=== PATIENT | male | born 1975 | race American Indian/Alaskan Native ===

== ENCOUNTER 2017-02-07 17:59 | Emergency (ER) | payer OTHER ==
[2017-02-07] MEDS ORDERED: NACL 0.9% 1000 ML 1,000 ML IV ONE (19:04)
[2017-02-07 19:27] LABS: Basophils % (Auto) 0.3 % (0.0-1.8); Eosinophils % (Auto) 2.2 % (0.0-4.3); Hemoglobin 14.5 gm/dl (11.8-15.2); Mean Corpuscular HGB Conc 34 % (32-34); Mean Corpuscular Hemoglobin 32 pg (28-32); Mean Corpuscular Volume 96 fl (84-94); Platelet Count 198 K/mm3 (140-440); Red Blood Count 4.51 M/mm3 (3.65-5.03); Red Cell Distribution Width 13.8 % (13.2-15.2); White Blood Count 4.6 K/mm3 (4.5-11.0)
[2017-02-07] MEDS ORDERED: NACL ONE (19:30)
[2017-02-07 19:47] LABS: Alanine Aminotransferase 14 units/L (7-56); Albumin 4.4 g/dL (3.9-5); Albumin/Globulin Ratio 1.6 %; Alkaline Phosphatase 51 units/L (35-129); Anion Gap 18 mmol/L; BUN/Creatinine Ratio 17.69; Blood Urea Nitrogen 23 mg/dL (9-20); Calcium 9.4 mg/dL (8.4-10.2); Carbon Dioxide 27 mmol/L (22-30); Chloride 103.9 mmol/L (98-107); Glucose 90 mg/dL (75-100); Potassium 3.8 mmol/L (3.6-5.0); Sodium 145 mmol/L (137-145); Total Protein 7.1 g/dL (6.3-8.2)
[2017-02-07] MEDS ORDERED: ROCEPHIN IM ONE (20:14)
[2017-02-07] MEDS ORDERED: XYLOCAINE 1% MPF 5 mL INFILTRATI ONE (20:14)
[2017-02-07] MEDS ORDERED: ZITHROMAX PO ONE (20:14)
[2017-02-07 20:17] LABS: Bacteria,Urine 2+ /HPF (Negative); Bilirubin,Urine NEG (Negative); Blood,Urine MOD (Negative); Ketones,Urine NEG (Negative); Leukocyte Esterase,Urine NEG (Negative); Mucus,Urine 1+ /HPF; Nitrite,Urine NEG (Negative); Urobilinogen,Urine < 2.0 mg/dL (<2.0)
[2017-02-07 20:22] LABS: RBC,Urine > 182.0 /HPF (0.0-6.0)
--- NOTE | 2017-02-07 20:50 | Cat Scan Report ---
FINAL REPORT EXAM: CT ABDOMEN PELVIS W CON HISTORY: r/o kidney stone TECHNIQUE: Dynamic helical CT scan through the abdomen and pelvis during and again after intravenous injection of iodinated contrast. Images are reconstructed in the sagittal and coronal planes. Oral contrast was not given. PRIORS: None. FINDINGS: The lung bases are clear. The liver, gallbladder, pancreas, spleen and left adrenal gland appear normal. There is a 1.5 cm adenoma of the lateral limb of the right adrenal gland and 9 millimeter adenoma the medial limb . There is a 1.2 cm cyst in the lower pole of the right kidney. The pelvic organs appear grossly normal. The stomach appears grossly within normal limits. There are no abnormally dilated loops of bowel or acute inflammatory changes. A normal-appearing appendix is identified. The abdominal aorta has a normal diameter. The bones and subcutaneous soft tissues are unremarkable for age. IMPRESSION: 1. No evidence of hydronephrosis or urolithiasis. 2. Small right adrenal adenomas 3. 1.2 cm cyst in the lower pole of the right kidney. 4. No acute findings in the abdomen/pelvis
[2017-02-07 21:00] VITALS: BP 129/82
--- NOTE | 2017-02-07 22:47 | Emergency Department Report ---
Entered by MEDINA HUNG, acting as scribe for JEREMÍAS RASMUSSEN NP. ED Male HPI - General Chief complaint: Urogenital-Male Stated complaint: BLOOD IN URINE Source: patient Mode of arrival: Ambulatory Limitations: No Limitations - History of Present Illness Initial comments: 42 y/o male that is non-toxic, non ill appearing, in no acute distress with no significant PMHx presents to the ED c/o hematuria and blood in semen that began this afternoon. Patient states he had 1 beer last night and had sexual intercourse without protection [employer] the onset of symptoms. Associated symptom include urinary retention and dysuira, but he denies penile lesions, fever, chills, nausea, vomiting, chest pain, and SOB. Notes that he gets similar symptoms annually since 2011 but has not follow-up with his primary care doctor/ urologist due to no insurance till now. Patient states that the symptoms intermittently began in 2011 after sexual intercourse. He states he urinated afterwards and noticed blood present. Patient reports hematuria a couple of months later in 2011, but notes it occurred after consuming moderates amounts of EtOH. Patient stated has been going to the ER several times for this occasion with normal CT scans and prostate exams. He received Ct scans and ultrasound and was not diagnosed with having kidney stones or any other medical conditions. Notes he got his prostate checked 2 years ago with normal results, but he was diagnosed him with dehydration. Denies constipation, rectal bleeding , or pain. Patient denies abdominal pain and stated has normal voiding. Notes the symptoms mostly occur after consuming EtOH, but states the symptoms also occurred without EtOH consumption. NKDA. FLORES Complaint: other (urinary retention, hematuria, and blood in semen) -: Gradual, year(s) (5), This afternoon Location: penis Radiation: none Severity: moderate Consistency: constant Improves with: none Worsens with: none denies other symptoms, urinary retention, blood in urine, dysuria, other ( abdominal pain, hematuria, and blood in semen). denies: discharge, swelling, mass, rash, fever, nausea/vomiting, incontinence - Related Data Sexually active: Yes Previous Rx's Medication Instructions Recorded Last Taken Type Sulfamethoxazole/Trimethoprim 1 each PO BID 7 Days 02/07/17 Unknown Rx [Bactrim DS TAB] Allergies Allergy/AdvReac Type Severity Reaction Status Date / Time No Known Allergies Allergy Unverified 02/07/17 18:08 ED Review of Systems Comment: All other systems reviewed and negative Constitutional: no symptoms reported. denies: chills, fever Respiratory: no symptoms reported. denies: cough, shortness of breath Cardiovascular: denies: chest pain Endocrine: no symptoms reported Gastrointestinal: denies: abdominal pain, nausea, vomiting Genitourinary: dysuria, hematuria, other (blood in semen and urinary retention) Skin: denies: rash ED Past Medical Hx - Past Medical History Previous Medical History?: No - Surgical History Past Surgical History?: No - Social History Smoking Status: Never Smoker Substance Use Type: Alcohol, Marijuana - Medications Home Medications: Home Medications Medication Instructions Recorded Confirmed Last Taken Type Sulfamethoxazole/Trimethoprim 1 each PO BID 7 Days 02/07/17 Unknown Rx [Bactrim DS TAB] ED Physical Exam - General Limitations: No Limitations General appearance: alert, in no apparent distress - Head Head exam: Present: atraumatic, normocephalic - Eye Eye exam: Present: normal appearance, EOMI - ENT ENT exam: Present: normal exam, mucous membranes moist, TM's normal bilaterally , normal external ear exam - Neck Neck exam: Present: normal inspection, full ROM - Respiratory Respiratory exam: Present: normal lung sounds bilaterally. Absent: respiratory distress, wheezes, rales, rhonchi - Cardiovascular Cardiovascular Exam: Present: regular rate, normal rhythm. Absent: systolic murmur, diastolic murmur, rubs, gallop - GI/Abdominal GI/Abdominal exam: Present: soft, normal bowel sounds. Absent: distended, tenderness, guarding, rebound, rigid, diminished bowel sounds, mass, bruit, pulsatile mass, hernia - Rectal Rectal exam: Present: normal inspection, normal rectal tone, normal prostate. Absent: decreased rectal tone, black stool, bloody stool, fecal impaction, hemorrhoids, mass, tenderness, prostate tenderness, prostate enlargement - exam: Present: normal inspection. Absent: testicular tenderness, urethral discharge, scrotal swelling, vertical testicular lie External exam: Present: normal external exam. Absent: erythema, swelling, lesions, lacerations, ecchymosis, bleeding - Extremities Exam Extremities exam: Present: normal inspection, full ROM, normal capillary refill. Absent: tenderness, pedal edema, joint swelling - Back Exam Back exam: Present: normal inspection, full ROM - Neurological Exam Neurological exam: Present: alert, oriented X3, CN II-XII intact, normal gait - Psychiatric Psychiatric exam: Present: normal affect, normal mood - Skin Skin exam: Present: warm, dry, intact. Absent: rash - Other Other exam information: Patient voided 250 cc in the ED. ED Course Vital Signs 02/07/17 02/07/17 02/07/17 18:10 19:39 21:00 Temperature 98.5 F Pulse Rate 99 H 70 Respiratory 17 18 Rate Blood Pressure 140/83 Blood Pressure 129/82 [Left] O2 Sat by Pulse 97 99 97 Oximetry - Reevaluation(s) Reevaluation #1: 02/07/17 20:42 Dr. Caban and Dr. Bryant was consulted about the patient and agrees to treatment plan in the ED as well as follow-up plan of care with Urologist. ED Medical Decision Making - Lab Data Result diagrams: 02/07/17 19:06 02/07/17 19:06 - Medical Decision Making Ed course: This is a 42-year-old male that presents with UTI with hematuria intermittent for the past 5 years 1- Dr. Caban and Dr. Bryant has been consulted about the patient with v/s, labs, and Ct scan. Agrees to treatment plan in the ED and d/c plan of care. 2- I instructed the patient to increase fluid intake and if symptoms persist to report back emergency room. Patient was also instructed to follow up with urologist as was possible. I also notified the patient if symptoms of difficult urinating, unable to urinate, abdominal pain, or distended bladder to report back to the emergency room for possibility of a Minaya catheter insertion. 3- at the time of discharge the patient received Bactrim by mouth twice a day for 7 days. 4- patient agrees to discharge plan of care and stated will follow-up with a urologist within 24 hours. 5- CT scan of the abdomen/pelvis with contrast was obtained in ER. Results; no evidence of hydronephrosis or urolithiasis. Small right adrenal adenomas. 1.2 cm cyst in the lower pole of the right kidney. No acute findings in the abdomen /pelvis. 6- CBC, UA, and CMP was obtained in the ED. UA shows white count of 142 and RBCs of 182 with the urine bacteria 2+. 7-at the time of discharge the patient does not seem toxic or ill in appearance. No signs of any distress noted. Patient agrees to discharge treatment plan. 8- Patient received Rocephin 250mg IM in the Ed. Patient tolerated well with no signs of distress noted. ED Disposition Clinical Impression: UTI (urinary tract infection) Disposition: DISCHARGED TO HOME OR SELFCARE Is pt being admited?: No Does the pt Need Aspirin: No Condition: Stable Instructions: Urinary Tract Infection in Men (ED) Additional Instructions: Follow-up with her primary care doctor/urologist within 24 hours. If symptoms persist or you experience Symptoms of difficult urinating, unable to urinate, abdominal pain, or distended bladder to report back to the emergency room for possibility of a Minaya catheter insertion. Take full course of antibiotics as prescribed. Prescriptions: Sulfamethoxazole/Trimethoprim [Bactrim DS TAB] 1 each PO BID 7 Days Referrals: CLIFF WOODARD MD [Referring] - 3-5 Days MOSES CARIAS MD [Referring] - 3-5 Days [facility] [place] [Outside] - 3-5 Days [facility] [Outside] - 3-5 Days MASON DAVIS MD [Staff Physician] - 24 Hours PRIMARY CARE, [Primary Care Provider] - 24 Hours Forms: Work/School Release Form(ED) This documentation as recorded by the ANABELL miller JASMINE,accurately reflects the service I personally performed and the decisions made by ,JEREMÍAS RASMUSSEN, [employer].
== END 2017-02-07 21:28 | disposition home or self-care (01) ==
LOC: ED 17:59
DX: N39.0 Urinary tract infection, site not specified (principal); F12.10 Cannabis abuse, uncomplicated
CPT/HCPCS: 36415; 74177; 80053; 81001; 85025; 87591; 96360; 96372; 99284; J0696; J7030; Q9967

== ENCOUNTER 2017-03-22 16:29 | Emergency (ER) | payer OTHER ==
[2017-03-22 19:51] VITALS: BP 148/102
[2017-03-22 20:52] LABS: Anion Gap 16 mmol/L; Blood Urea Nitrogen 12 mg/dL (9-20); Calcium 9.2 mg/dL (8.4-10.2); Carbon Dioxide 29 mmol/L (22-30); Chloride 99.6 mmol/L (98-107); Glucose 88 mg/dL (75-100); Potassium 4.2 mmol/L (3.6-5.0); Sodium 140 mmol/L (137-145)
[2017-03-22 20:54] LABS: Basophils % (Auto) 0.3 % (0.0-1.8); Eosinophils % (Auto) 3.9 % (0.0-4.3); Hematocrit 45.5 % (35.5-45.6); Hemoglobin 15.5 gm/dl (11.8-15.2); Mean Corpuscular HGB Conc 34 % (32-34); Mean Corpuscular Hemoglobin 32 pg (28-32); Mean Corpuscular Volume 95 fl (84-94); Platelet Count 190 K/mm3 (140-440); Red Blood Count 4.77 M/mm3 (3.65-5.03); White Blood Count 4.6 K/mm3 (4.5-11.0)
[2017-03-22 21:14] LABS: Bilirubin,Urine NEG (Negative); Blood,Urine NEG (Negative); Ketones,Urine NEG (Negative); Leukocyte Esterase,Urine NEG (Negative); Mucus,Urine FEW /HPF; Nitrite,Urine NEG (Negative); Protein,Urine <15 mg/dL mg/dL (Negative); Urobilinogen,Urine < 2.0 mg/dL (<2.0)
== END 2017-03-22 20:20 | disposition left against medical advice (07) ==
LOC: ED 16:29
DX: R19.7 Diarrhea, unspecified (principal); Z53.21 Procedure and treatment not carried out due to patient leaving prior to being seen by health care provider
CPT/HCPCS: 36415; 80048; 81001; 85025